=== PATIENT | male | born 1970 | race African-American/Black ===

== ENCOUNTER 2017-10-16 04:00 | Emergency (ER) | payer BC, OTHER ==
[~2017-10-16] VITALS: Ht 180.3 cm; Wt 79.4 kg
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
[2017-10-16] MEDS ORDERED: IBUPROFEN 600 MG TABLET ONE (04:25)
[2017-10-16] MEDS ORDERED: IBUPROFEN 600 MG TABLET PO ONE (04:30)
--- NOTE | 2017-10-16 04:32 | NUR ---
Patient discharged to home in stable conditon. Written and verbal after care instructions given. Patient verbalizes understanding of instructions. Pt ambulated from ER w/ steady gait. No distress noted. Pt took all personal belongings.
[2017-10-16 04:49] VITALS: BP 115/76
== END 2017-10-16 04:51 | disposition home or self-care (01) ==
LOC: ER 04:00
DX: S16.1XXA Strain of muscle, fascia and tendon at neck level, initial encounter (principal); S29.012A Strain of muscle and tendon of back wall of thorax, initial encounter; V49.9XXA Car occupant (driver) (passenger) injured in unspecified traffic accident, initial encounter; Y93.89 Activity, other specified; Y92.410 Unspecified street and highway as the place of occurrence of the external cause; Y99.8 Other external cause status
CPT/HCPCS: A4663